=== PATIENT | female | born 1970 | race Caucasian/White ===

== ENCOUNTER 2021-11-27 17:32 | Emergency (ER) | payer MEDICAID, SELFPAY ==
[2021-11-27 17:33] VITALS: BP 132/93; PULSE 95; RESP 16; TEMP 36.7; O2SAT 92; BMI 36.2
--- NOTE | 2021-11-27 18:07 | CT_ITS ---
STUDY: CT BRAIN WITHOUT CONTRAST REASON FOR EXAM: Female, 51 years old. HEADACHE fall, head injury TECHNIQUE: Transaxial CT imaging of the brain was performed without administration of intravenous contrast material. Individualized dose optimization techniques were used for this CT. COMPARISON: None FINDINGS: Normal calvarium. Normal soft tissues. Normal size ventricles and extra-axial spaces for the patient''s age. Low density regions in the brain may signify early microvascular ischemic changes, a demyelinating process, vasculitis, or sequela related to migraines. Normal basal ganglia and thalami. Normal brainstem. Normal cerebellum. There is no intracranial hemorrhage. There are no findings of an acute ischemic infarction. Normal visualized paranasal sinuses. ASPECTS 10 CT/Brain/Head without Contrast IMPRESSION: Low density regions in the brain may signify early microvascular ischemic changes, a demyelinating process, vasculitis, or sequela related to migraines. Electronically Signed: Hossein Joyce MD at 19:00 EST ,
--- NOTE | 2021-11-27 18:07 | CT_ITS ---
STUDY: CT Spine Cervical W/O Contrast Injection 11/27/2021 6:59 PM REASON FOR EXAM: Female, 51 years old. NECK PAIN TECHNIQUE: High resolution transaxial imaging was performed without intravenous administration of contrast material. Sagittal and coronal images were reconstructed. Individualized dose optimization techniques were used for this CT. COMPARISON: None FINDINGS: Normal craniovertebral junction. Normal anterior atlantoaxial articulation. Normal odontoid process. There are scattered blebs and bullae. This can be seen in pulmonary emphysema. There is straightening of the normal cervical lordosis. Normal vertebral bodies and posterior osseous elements. C2-3: Normal endplates. Normal disc height and morphology. Normal central canal and intervertebral neuroforamina. C3-4: Normal endplates. Normal disc height and morphology. Normal central canal and intervertebral neuroforamina. C4-5: Loss of intervertebral disc height. There is endplate spondylosis of the vertebral body. Normal central canal and intervertebral neuroforamina. C5-6: Loss of intervertebral disc height. There is endplate spondylosis of the vertebral body. Normal central canal and intervertebral neuroforamina. C6-7: Normal endplates. Normal disc height and morphology. Normal central canal and intervertebral neuroforamina. C7-T1: Normal endplates. Normal disc height and morphology. Normal central canal and intervertebral neuroforamina. Normal visualized soft tissue structures. IMPRESSION: (NOT LISTED IN ORDER OF SIGNIFICANCE) Multilevel degenerative changes, as described above. There is altered curvature of the normal cervical lordosis. This can suggest neck strain. Electronically Signed: Hossein Joyce MD at 19:01 EST , CT/Spine Cervical without Contras
--- NOTE | 2021-11-27 18:12 | EDS_ITS ---
HPI <KARMEN Pruett - Last Filed: 11/27/21 19:50> History of Present Illness Chief Complaint: Syncope Narrative Narrative: 51-year-old with history of hypertension, COPD, diabetes, psychiatric issues presents the emergency department with a head injury secondary to a syncopal episode. 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 Patient states that she denies any warning that she was going to pass out, patient not get dizzy, not feel nauseated, sweaty. Patient does have an abrasion to the pos terior head, patient is acting appropriate, patient is not on any blood thinners PFS <KARMEN Pruett - Last Filed: 11/27/21 19:50> [facility] Medical History (Updated 11/27/21 @ 19:49 by KARMEN Pruett) COPD (chronic obstructive pulmonary disease) Degenerative disc disease Glaucoma High blood pressure High cholesterol Allergy/AdvReac Type Severity Reaction Status Date / Time codeine AdvReac Other Verified 11/27/21 18:00 Surgical History (Updated 11/27/21 @ 18:00 by Javi Roy) H/O exploratory laparotomy H/O knee surgery Social History Smoking Status: Current every day smoker tobacco type: cigarettes ROS <KARMEN Pruett - Last Filed: 11/27/21 19:50> ROS ED ROS Narrative Constitutional: Negative for fever, chills, weight loss or gain, weakness Eyes: Negative for vision loss, vision change, double vision ENT: Negative for any hearing changes, ringing in the ears, dizziness, discharge, pain Nose: Negative for any congestion, runny nose, sinus pain, allergies Throat: Negative for any sore throat hoarseness, voice changes, Cardiovascular: Negative for any chest pain, tightness, palpitations, racing heartbeat Respiratory: Negative for any coughs, sputum production, coughing, hemoptysis, shortness of breath, shortness of breath on exertion, Gastrointestinal: Negative for any abdominal pain, nausea, vomiting, diarrhea, constipation, blood in stool, blood in vomit : Negative for any urinary frequency, incontinence, dysuria, retention, blood in urine Muscle skeletal: Negative for any muscle joint pain, stiffness, myalgias, arthralgias, neck pain, back pain Neurological: Negative for any head injury, dizziness, syncope, numbness or tingling. Positive for headache Skin: Negative for any rashes, lumps, itching, lacerations. Positive for abrasion to the occiput Psychiatric: Negative for any depression, anxiety, stress, suicidal ideation, homicidal ideation Hematologic: Negative for any easy bruising, excessive bruising, easy bleeding Allergies: Negative for any eczema, hives, rash EXAM <KARMEN Pruett - Last Filed: 11/27/21 19:50> Physical Exam Const Vital Signs: 11/27/21 17:33 Temperature 98.1 F Temperature Source Temporal Pulse Rate 95 Respiratory Rate 16 Blood Pressure 132/93 H Blood Pressure Mean 106 Pulse Ox 92 Oxygen Delivery Method Room Air HEENT HEENT Narrative: Patient's occiput does have depression around the area of the abrasion, hematoma. trauma and tenderness Eyes Eyes Narrative: Pupils are equal round react to light, negative for any hematoma, septal hematoma. Neck no lymphadenopathy and supple Chest Wall inspection of chest normal and palpation of chest normal Resp normal respiratory effort and clear to auscultation bilaterally Cardio regular rate and regular rhythm GI normal to inspection, nondistended, normoactive bowel sounds Back/Spine no CVA tenderness Back/Spine Narrative: Patient has no pain to her lower back, negative any step- off deformity, pain to palpation. Extremity normal to inspection Neuro oriented x3 and CN's II-XII intact bilaterally Sensorium / Orientation: alert Psych mental status grossly normal <Dr. Kevin Sheldon DO - Last Filed: 11/27/21 23:34> Physical Exam Const Vital Signs: 11/27/21 17:33 Temperature 98.1 F Temperature Source Temporal Pulse Rate 95 Respiratory Rate 16 Blood Pressure 132/93 H Blood Pressure Mean 106 Pulse Ox 92 Oxygen Delivery Method Room Air MDM <KARMEN Pruett - Last Filed: 11/27/21 19:50> [facility] Narrative Medical decision making narrative: Patient appears well, patient appears nontoxic, vital signs are stable. Patient presents to the emergency department after a syncopal episode after drinking alcohol. Patient had a hematoma to the back of her head, and is here for evaluation. Patient did receive a CT scan of the head, cervical spine, this was unremarkable for any acute process. Patient's physical examination, patient is intoxicated however acting appropriate. Patient's blood alcohol level was 215. The remainder the patient's blood work was unremarkable. The patient tetanus is up-to-date in the last 5 years. Patient's reevaluation was unremarkable, patient's physical examination of the occiput shows that the patient has a hematoma, there is no laceration to staple. Patient was urged to ice, elevate. At this time, patient stable for discharge, patient does have her to watch her tonight. Patient instructed return for any worsening nausea, vomiting, head pain. Patient stable for discharge Lab Data Labs: Laboratory Results - last 24 hr 11/27/21 11/27/21 11/27/21 18:19 18:19 18:19 WBC 11.4 H RBC 4.76 Hgb 14.8 Hct 45.1 MCV 94.7 MCH 31.1 MCHC 32.8 RDW Std Deviation 44.0 H RDW Coeff of Gm 12.7 Plt Count 313 MPV 10.3 Immature Gran % (Auto) 0.400 Neut % (Auto) 74.8 H Lymph % (Auto) 15.[address] [place] % (Auto) 8.6 Eos % (Auto) 0.3 Baso % (Auto) 0.3 Absolute Neuts (auto) 8.5 H Absolute Lymphs (auto) 1.77 Nucleated RBC % 0 Sodium 131 L Potassium 3.6 Chloride 98 Carbon Dioxide 27.0 Anion Gap 6 BUN 6 L Creatinine 0.69 Estim Creat Clear Calc 75.43 Est GFR (MDRD) Af Amer 114 Est GFR (MDRD) Non-Af 94 BUN/Creatinine Ratio 8.6 L Glucose 96 Calcium 8.8 Ethyl Alcohol 215.0 Radiography Diagnostic Testing: Clinical Impression(s) from Imaging Studies Brain CT 11/27/21 18:07 IMPRESSION: Low density regions in the brain may signify early microvascular ischemic changes, a demyelinating process, vasculitis, or sequela related to migraines. Electronically Signed: Hosesin Joyce MD at 19:00 EST , Cervical Spine CT 11/27/21 18:07 EKG Normal sinus rhythm: Attestation: I personally reviewed and interpreted this EKG as follows: Comments: Normal sinus rhythm, rate of 85 bpm, SC interval 170 ms, QRS duration 80 ms, no acute ST elevation or infarct. <Dr. Kevin Sheldon DO - Last Filed: 11/27/21 23:34> [facility] MDM Narrative Medical decision making narrative: Attending note: Seen and evaluated with transfer worker. I agree with plan and work-up. I performed on [id number]-to-[id number] evaluation. Syncopal episode while on [place] steps [place] post office. No anticoagulation medicines. Tetanus in the last 5 years. Hit the back of her head. Headache symptoms. Admitted to couple drinks of alcohol today. States was lightheaded earlier today. No vomiting or diarrhea. Exam noted hematoma posterior occiput with abrasion there is no lacerations bleeding controlled with pressure. No hemotympanums. No neck pain. Full range of motion of all extremities. Patient is clinically sober, with her fall down steps trauma scans head and neck obtained shows no acute process. EKG was normal basic labs were normal alcohol level was obtained noted 215. Patient able to ambulate. She is discharged with a sober ride. Lab Data Attestation: I reviewed the patient's lab results. Labs: Laboratory Results - last 24 hr 11/27/21 11/27/21 11/27/21 18:19 18:19 18:19 WBC 11.4 H RBC 4.76 Hgb 14.8 Hct 45.1 MCV 94.7 MCH 31.1 MCHC 32.8 RDW Std Deviation 44.0 H RDW Coeff of Gm 12.7 Plt Count 313 MPV 10.3 Immature Gran % (Auto) 0.400 Neut % (Auto) 74.8 H Lymph % (Auto) 15.[address] % (Auto) 8.6 Eos % (Auto) 0.3 Baso % (Auto) 0.3 Absolute Neuts (auto) 8.5 H Absolute Lymphs (auto) 1.77 Nucleated RBC % 0 Sodium 131 L Potassium 3.6 Chloride 98 Carbon Dioxide 27.0 Anion Gap 6 BUN 6 L Creatinine 0.69 Estim Creat Clear Calc 75.43 Est GFR (MDRD) Af Amer 114 Est GFR (MDRD) Non-Af 94 BUN/Creatinine Ratio 8.6 L Glucose 96 Calcium 8.8 Ethyl Alcohol 215.0 Radiography Diagnostic Testing: Clinical Impression(s) from Imaging Studies Brain CT 11/27/21 18:07 IMPRESSION: Low density regions in the brain may signify early microvascular ischemic changes, a demyelinating process, vasculitis, or sequela related to migraines. Electronically Signed: Hossein Joyce MD at 19:00 EST Reading Location ID and State: [facility] / [place] , Service support , Cervical Spine CT 11/27/21 18:07 Discharge Plan Triage Chief Complaint: Syncope ED Provider: Bertrand Ventura Dx/Rx/DC Orders Clinical Impression: Syncope, Elevated ETOH level Instructions: Causes of Syncope, ED Head Injury (Adult) Primary Care Provider: Fabienne Mccoy Referrals: Fabienne Mccoy MD [Primary Care Provider] - Activity Restrictions/Additional Instructions: Please follow-up as needed, please ice the back of your head. Please take Tylenol for any pain or discomfort. Please return here for any worsening symptoms. Disposition Disposition: Home, Self Care Discharge Date/Time: 11/27/21 20:04
--- NOTE | 2021-11-27 18:16 | EKG12_ITS ---
Test Reason : SYNCOPE Blood Pressure : / mmHG Vent. Rate : 085 BPM Atrial Rate : 085 BPM P-R Int : 170 ms QRS Dur : 080 ms QT Int : 366 ms P-R-T Axes : 073 064 071 degrees QTc Int : 435 ms Normal sinus rhythm Normal ECG Confirmed by CESIA RIVAS, JAQUAN ([id number]), newspaper editor managing AVANI AMARAL ([id number]) on 11/30/2021 10:35:25 AM Referred By: TL Confirmed By:JAQUAN CALLAWAY MD
[2021-11-27 18:40] LABS: Absolute Lymphocyte Count 1.77 X10^3/uL (0.83-4.51); Absolute Neutrophil Count 8.5 X10^3/uL (2.0-7.7); Basophil# 0.03 X10^3/uL; Basophil% 0.3 % (0-1); Eosinophil# 0.03 X10^3/uL; Eosinophils% 0.3 % (0-5); Hematocrit 45.1 % (37-47); Hemoglobin 14.8 g/dL (12.0-15.0); Lymphocyte # 1.77 X10^3/ul (0.83-4.51); Lymphocyte % 15.6 % (19-41); Mean Corp Hgb Conc 32.8 g/dL (32-36); Mean Corpuscular Hgb 31.1 pg (27.0-32.0); Mean Corpuscular Volume 94.7 fL (81-99); Mean Platelet Vol. 10.3 fl (6.2-12.0); Monocyte# 0.98 X10^3/uL; Monocyte% 8.6 % (0-10); NRBC Flagged by Analyzer 0 % (0-5); Neutrophil # 8.52 X10^3/uL (2.7-7.7); Neutrophil % 74.8 % (47-70); Platelet Count 313 K/mm3 (150-450); RBC Distribution Width CV 12.7 % (11.6-14.6); Red Blood Count 4.76 M/mm3 (4.2-5.4); White Blood Count 11.4 K/mm3 (4.4-11.0)
[2021-11-27 18:47] LABS: Anion Gap 6 (5-15); BUN 6 mg/dL (7-18); BUN/Creat Ratio 8.6 RATIO (10-20); Calcium,Total 8.8 mg/dL (8.5-10.1); Chloride 98 mmol/L (98-107); Creatinine, Serum 0.69 mg/dL (0.55-1.02); EST Glomerular Filtration Rate 94 mL/min (>60); Est Glom Filt Rate - Afr Amer 114 mL/min (>60); Estimated Creatinine Clearance 75.43 ml/min; Glucose 96 mg/dL (74-106); Potassium 3.6 mmol/L (3.5-5.1); Sodium Level 131 mmol/L (136-145)
== END 2021-11-27 20:04 | disposition home or self-care (01) ==
PROVIDERS: Emergency Provider Nurse Practitioner; PCP Internal Medicine; Visit Provider Nurse Practitioner
DX: R55 Syncope and collapse (principal); J44.9 Chronic obstructive pulmonary disease, unspecified; F10.929 Alcohol use, unspecified with intoxication, unspecified; E11.9 Type 2 diabetes mellitus without complications; Y90.7 Blood alcohol level of 200-239 mg/100 ml; S00.93XA Contusion of unspecified part of head, initial encounter; W10.9XXA Fall (on) (from) unspecified stairs and steps, initial encounter; Y93.89 Activity, other specified; Y99.8 Other external cause status; I10 Essential (primary) hypertension; F17.210 Nicotine dependence, cigarettes, uncomplicated; E78.00 Pure hypercholesterolemia, unspecified; Z79.899 Other long term (current) drug therapy
CPT/HCPCS: 70450; 72125; 80048; 82077; 85025; 93005; 99283; A4216

== ENCOUNTER 2023-09-15 12:57 | Observation (INO) | payer MEDICAID, SELFPAY ==
[2023-09-15 12:59] VITALS: BP 120/81; PULSE 107; RESP 16; TEMP 36.4; O2SAT 95; BMI 31.3
--- NOTE | 2023-09-15 13:06 | EKG12_ITS ---
Test Reason : DYSRHYTHMIA Blood Pressure : / mmHG Vent. Rate : 099 BPM Atrial Rate : 099 BPM P-R Int : 158 ms QRS Dur : 078 ms QT Int : 320 ms P-R-T Axes : 074 050 062 degrees QTc Int : 410 ms Sinus rhythm with Premature atrial complexes Otherwise normal ECG Confirmed by CESIA RIVAS, JAQUAN ([id number]), tape editor AVANI AMARAL ([id number]) on 09/16/2023 1:57:38 PM Referred By: JERRY Confirmed By:JAQUAN CALLAWAY MD
[2023-09-15 13:43] LABS: Absolute Lymphocyte Count 2.03 X10^3/uL (0.83-4.51); Absolute Neutrophil Count 5.8 X10^3/uL (2.0-7.7); Basophil# 0.03 X10^3/uL; Basophil% 0.3 % (0-1); Eosinophil# 0.04 X10^3/uL; Eosinophils% 0.5 % (0-5); Hematocrit 38.4 % (37-47); Hemoglobin 12.5 g/dL (12.0-15.0); Lymphocyte # 2.03 X10^3/ul (0.83-4.51); Lymphocyte % 23.2 % (19-41); Mean Corp Hgb Conc 32.6 g/dL (32-36); Mean Corpuscular Volume 92.1 fL (81-99); Mean Platelet Vol. 9.8 fl (6.2-12.0); Monocyte# 0.79 X10^3/uL; NRBC Flagged by Analyzer 0 % (0-5); Neutrophil # 5.83 X10^3/uL (2.7-7.7); Neutrophil % 66.5 % (47-70); Platelet Count 344 K/mm3 (150-450); RBC Distribution Width CV 13.2 % (11.6-14.6); RBC Distribution Width SD 44.9 fl (35.1-43.9); Red Blood Count 4.17 M/mm3 (4.2-5.4); White Blood Count 8.8 K/mm3 (4.4-11.0)
[2023-09-15 13:55] LABS: ALB/GLOB Ratio 0.8 RATIO (0.9-2.4); AST(SGOT) 22 U/L (15-37); Alanine Aminotransfer ALT/SGPT 32 U/L (13-56); Albumin, Serum 3.3 g/dL (3.2-5.0); Alkaline Phosphatase 108 U/L (45-117); Anion Gap 5 (5-15); BUN 8 mg/dL (7-18); BUN/Creat Ratio 14.2 RATIO (10-20); Calcium,Total 8.2 mg/dL (8.5-10.1); Chloride 98 mmol/L (98-107); Creatinine, Serum 0.56 mg/dL (0.55-1.02); EST Glomerular Filtration Rate 119 mL/min (>60); Est Glom Filt Rate - Afr Amer 144 mL/min (>60); Estimated Creatinine Clearance 90.83 ml/min; Glucose 119 mg/dL (74-106); Potassium 4.5 mmol/L (3.5-5.1); Protein, Total 7.3 g/dL (6.4-8.2); Sodium Level 133 mmol/L (136-145)
[2023-09-15 14:09] LABS: Amphetamine Urine VISTA NEGATIVE (<1000 ng/mL); Barbiturate Urine VISTA NEGATIVE (< 200 ng/mL); Benzodiazepine Urine VISTA NEGATIVE (< 200 ng/mL); Cocaine Urine VISTA NEGATIVE (< 300 ng/mL); Ecstacy Urine VISTA NEGATIVE (< 500 ng/mL); Methadone Urine VISTA NEGATIVE (< 300 ng/mL); PCP Urine VISTA NEGATIVE (< 25 ng/mL); THC Urine VISTA NEGATIVE (< 50 ng/mL); Vista UDS pH Range 6
--- NOTE | 2023-09-15 14:32 | EDS_ITS ---
HPI History of Present Illness Chief Complaint: Substance Abuse Informant: patient Narrative Narrative: Patient is a 53-year-old female with history of fibromyalgia and anxiety presenting for alcohol detox. Patient states she is been drinking heavily for the past few weeks. She was recently admitted at [facility] for a 2- week hospitalization for her anxiety. She notes since then she has been experiencing night terrors and sleepwalking. She has been drinking more to cope with this. Last drink was at 4 AM. She states last night she drank 10 16 ounce [place] Light's. She is normally she will drink 4 to 6 16 ounce beers. Patient denies any history of DVTs. She denies any drug use. She denies any tobacco use. She has never been through detox before. No other complaints or concerns at this time. [facility] Medical History COPD (chronic obstructive pulmonary disease) Degenerative disc disease Glaucoma High blood pressure High cholesterol Allergy/AdvReac Type Severity Reaction Status Date / Time nickel Allergy Mild Hives Verified 09/15/23 13:01 cephalexin [From Keflex] Allergy Unknown UNKNOWN Verified 09/15/23 13:01 metoprolol AdvReac Mild Other Verified 09/15/23 13:01 codeine AdvReac Other Verified 09/15/23 13:01 Surgical History H/O exploratory laparotomy H/O knee surgery Social History Smoking Status: Current every day smoker tobacco type: cigarettes ROS ROS ED Constitutional Constitutional ED: Denies chills, fever(s) or sweats Cardiovascular Cardiovascular: Denies chest pain Respiratory/Chest Respiratory/Chest: Denies cough Gastrointestinal Gastrointestinal: Denies abdominal pain, nausea or vomiting Integumentary Denies rash Neurologic Neurologic: Denies headache(s) Psychiatric Psychiatric: Reports anxiety; Denies suicidal ideation or suicidal thoughts Hematologic/Lymphatic Hematologic/Lymphatic: Denies easy bleeding EXAM Physical Exam Const Vital Signs: 09/15/23 12:59 Temperature 97.6 F L Temperature Source Temporal Pulse Rate 107 H Respiratory Rate 16 Blood Pressure 120/81 H Blood Pressure Mean 94 Pulse Ox 95 Oxygen Delivery Method Room Air Positive well nourished and well developed General Appearance ED: well developed and NAD HEENT Reports moist mucous membranes Eyes PERRL and EOMs intact bilaterally General Eye ED: Negative for scleral icterus Neck supple and no JVD Chest Wall inspection of chest normal Resp clear to auscultation bilaterally Cardio regular rhythm Rate: tachycardic GI soft to palpation and non-tender Extremity General Extremety ED: Negative for edema or tenderness General Extremity: Negative for edema Neuro oriented x3 Neuro Narrative: Slightly tremulous, no focal neurologic deficit appreciated. Speech is normal. Sensorium / Orientation: alert Psych mental status grossly normal Mood & Affect: anxious Skin General Skin Exam: Negative for jaundice Rashes: no rashes MDM MDM MDM Narrative Medical decision making narrative: Patient is evaluated for alcohol detox. Patient is mildly tachycardic and tremulous. Possibly could be starting to withdrawal clinically. The alcohol level is negative and last drink is at 4 AM. Is given phenobarbital in the ER. Is medically cleared. I will be admitted for inpatient detox from alcohol. Patient agreeable with this. Case discussed with my physician, Dr. Mohan. Lab Data Attestation: I reviewed the patient's lab results. Labs: Laboratory Results - last 24 hr 09/15/23 09/15/23 13:32 13:52 WBC 8.8 RBC 4.17 L Hgb 12.5 Hct 38.4 MCV 92.1 MCH 30.0 MCHC 32.6 RDW Std Deviation 44.9 H RDW Coeff of Gm 13.2 Plt Count 344 MPV 9.8 Immature Gran % (Auto) 0.500 Neut % (Auto) 66.5 Lymph % (Auto) 23.2 [place] % (Auto) 9.0 Eos % (Auto) 0.5 Baso % (Auto) 0.3 Absolute Neuts (auto) 5.8 Absolute Lymphs (auto) 2.03 Nucleated RBC % 0 Sodium 133 L Potassium 4.5 Chloride 98 Carbon Dioxide 30.0 Anion Gap 5 BUN 8 Creatinine 0.56 Estim Creat Clear Calc 90.83 Est GFR (MDRD) Af Amer 144 Est GFR (MDRD) Non-Af 119 BUN/Creatinine Ratio 14.2 Glucose 119 H Calcium 8.2 L Total Bilirubin 0.10 L AST 22 ALT 32 Alkaline Phosphatase 108 Total Protein 7.3 Albumin 3.3 Globulin 4.0 Albumin/Globulin Ratio 0.8 L Urine Opiates Screen NEGATIVE Urine Methadone Screen NEGATIVE Ur Barbiturates Screen NEGATIVE Ur Phencyclidine Scrn NEGATIVE Ur Amphetamines Screen NEGATIVE MDMA (Ecstasy) Screen NEGATIVE U Benzodiazepines Scrn NEGATIVE Urine Cocaine Screen NEGATIVE U Cannabinoids Screen NEGATIVE Ur Drug Screen Comment Ethyl Alcohol 4.0 Management Discussion w/another healthcare provider: Hospitalist Discharge Plan Triage Chief Complaint: Substance Abuse ED Provider: Denise Alvarez Dx/Rx/DC Orders Clinical Impression: Alcohol dependence Primary Care Provider: Salud Galvan Referrals: Salud Galvan DO [Primary Care Provider] - Disposition Disposition: Acute Care Hospital [facility]
[2023-09-15] MEDS: Phenobarbital 32.4 MG Tablet 94.2000000000000028 MG PO (14:34)
[2023-09-15 15:24] VITALS: BP 106/73; PULSE 94; RESP 16; O2SAT 95
[2023-09-15 16:32] VITALS: BMI 31.1
[2023-09-15 16:33] VITALS: BP 116/70; PULSE 89; RESP 16; TEMP 36.6; O2SAT 93
--- NOTE | 2023-09-15 16:48 | HP.PCM.HOS_ITS ---
HPI - General General Date of Admission: 09/15/23 Date of Service: 09/15/23 Chief Complaint: Requesting services for alcohol detox HPI Narrative MYKE MOSELEY, is a 53 F who presents to the emergency room at [facility] requesting services for alcohol detox, patient states she drinks approximately 6-16 ounce [place] Light's per day, last night the patient states she drank 10-16 ounce [place] Light's. Patient states she has never been through alcohol detox before, she was hospitalized recently for bipolar disorder and anxiety. Patient states her last drink was 4 AM this morning. Patient's medical conditions include COPD, glaucoma, hypertension, hyperlipidemia, and degenerative disc disease. Patient's labs were unremarkable, patient's tox screen was negative, ethyl alcohol level was 4. Patient complains of some anxiety at this time, she denies ever having episodes of DT's, she has quit drinking before and had no withdrawal in the past. Patient will be admitted to [place] [address], orders were entered using the addiction order set and the alcohol detox order set. Patient was given 1 dose of oral phenobarbital in the emergency room due to anxiety [facility] Medical History COPD (chronic obstructive pulmonary disease) Degenerative disc disease Glaucoma High blood pressure High cholesterol Home Medications albuterol sulfate 2.5 mg/3 mL (0.083 %) solution for nebulization 2.5 mg inhalation Q6H PRN shortness of breath or wheezing 09/15/23 [History Last Taken Unknown] albuterol sulfate 90 mcg/actuation aerosol inhaler (Ventolin HFA) 2 puff inhalation Q4H PRN shortness of breath or wheezing 09/15/23 [History Last Taken Unknown] atorvastatin 10 mg tablet 10 mg PO DAILY ccholestrol 09/15/23 [History Last Taken Unknown] cyclobenzaprine 10 mg tablet 10 mg PO BID 09/15/23 [History Last Taken Unknown] dorzolamide 2 % eye drops 1 drp ophthalmic (eye) BID glaucoma 09/15/23 [History Last Taken Unknown] duloxetine 20 mg capsule,delayed release 20 mg PO QHS mood 09/15/23 [History Last Taken Unknown] furosemide 20 mg tablet 20 - 40 mg PO DAILY PRN edema 09/15/23 [History Last Taken Unknown] hydrocodone-homatropine 5 mg-1.5 mg/5 mL oral syrup 5 ml PO QHS cough 09/15/23 [History Last Taken Unknown] hydroxyzine pamoate 50 mg capsule 50 mg PO Q8H anxiey and allergies 09/15/23 [History Last Taken Unknown] latanoprostene bunod 0.024 % eye drops (Vyzulta) 1 drp EACH EYE QHS glaucoma 09/15/23 [History Last Taken Unknown] lidocaine 4 % topical patch (Lidocaine Pain Relief) 1 patch topical DAILY 09/15/23 [History Last Taken Unknown] lisinopril 40 mg tablet 40 mg PO DAILY blood pressure 09/15/23 [History Last Taken Unknown] montelukast 10 mg tablet 10 mg PO DAILY sob 09/15/23 [History Last Taken Unknown] omeprazole 40 mg capsule,delayed release 40 mg PO DAILY gerd 09/15/23 [History Last Taken Unknown] paliperidone 6 mg tablet,extended release 24 hr 6 mg PO QHS mood 09/15/23 [History Last Taken Unknown] prazosin 1 mg capsule 1 mg PO QHS mood 09/15/23 [History Last Taken Unknown] propylene glycol 0.6 % eye drops (Systane Complete) 1 drp EACH EYE TID PRN dry eye(s) 09/15/23 [History Last Taken Unknown] tizanidine 4 mg tablet 4 mg PO DAILY sore muscles 09/15/23 [History Last Taken Unknown] Allergy/AdvReac Type Severity Reaction Status Date / Time brimonidine Allergy Intermediate infections Verified 09/15/23 16:48 cat dander Allergy Intermediate Hives Verified 09/15/23 16:50 nickel Allergy Mild Hives Verified 09/15/23 13:01 cephalexin [From Keflex] Allergy Unknown UNKNOWN Verified 09/15/23 13:01 timolol AdvReac Intermediate decreased Verified 09/15/23 16:48 pulse metoprolol AdvReac Mild Other Verified 09/15/23 13:01 codeine AdvReac Other Verified 09/15/23 13:01 Surgical History H/O exploratory laparotomy H/O knee surgery Social History Smoking Status: Current every day smoker tobacco type: cigarettes ROS Constitutional Constitutional: Denies anorexia, change in weight, chills, fatigue, fever(s), night sweats or weakness Eyes Eyes: Denies blurry vision, change in eye color, change in vision, discharge from eye(s) or eye pain Cardiovascular Cardiovascular: Denies chest pain, claudication, dyspnea on exertion, edema or palpitations Respiratory/Chest Respiratory/Chest: Denies cough, hemoptysis, shortness of breath at rest or shortness of breath with exertion Gastrointestinal Gastrointestinal: Denies abdominal pain, constipation, diarrhea, hematemesis, hematochezia, melena, nausea or vomiting Genitourinary Genitourinary: Denies dysuria, hematuria, urinary frequency, urinary hesitancy, urinary incontinence or urinary urgency Neurologic Neurologic: Denies abnormal gait, abnormal speech, dizziness, focal weakness, headache(s), loss of vision, numbness, other visual disturbances, paresthesias, syncope or tingling Psychiatric Psychiatric: Reports anxiety, depression and other Details: Bipolar disorder ; Denies cognitive impairment, irritability, mood swings or suicidal ideation Endocrine Endocrinology: Denies change in body appearance, cold intolerance, excessive sweating, heat intolerance, polydipsia or polyuria Hematologic/Lymphatic Hematologic/Lymphatic: Denies none, anemia, easy bleeding, easy bruising or lymphadenopathy Allergic/Immunologic Allergic/Immunologic: Denies rhinitis, urticaria, eczemia or asthma Vital Signs Vital Signs Vital Signs: 09/15/23 12:59 09/15/23 15:24 09/15/23 15:24 Temperature 97.6 F L Temperature Source Temporal Pulse Rate 107 H 94 94 Respiratory Rate 16 16 16 Blood Pressure 120/81 H 106/73 106/73 Blood Pressure Mean 94 84 84 Pulse Ox 95 95 95 Oxygen Delivery Method Room Air Room Air Weight Weight: 76.9 kg Body Mass Index (BMI) 31.1 Physical Exam Const alert, oriented x3, no apparent distress and healthy appearing Constitutional Narrative: Patient appears mildly anxious General Appearance: cooperative, well kempt and well developed Orientation / Consciousness: awake, oriented to person, oriented to place and oriented to time HEENT normocephalic, head/scalp atraumatic, hearing grossly normal bilaterally and moist oral mucous membranes Eyes PERRL, EOMs intact bilaterally and conjunctivae normal Neck supple, no JVD, thyroid normal and no carotid bruits General: trachea midline Resp normal respiratory effort, no retractions, no use of accessory muscles and clear to auscultation bilaterally Auscultation: Negative for rales, rhonchi or wheezes Cardio regular rate, regular rhythm, S1 normal heart sound, S2 normal heart sound, no murmurs, no rub and no gallops GI normal to inspection, nondistended, normoactive bowel sounds, soft to palpation, non-tender and non-distended Extremity no clubbing, cyanosis or edema Skin no rashes or lesions noted General Skin Exam: no breakdown Neuro oriented x3, CN's II-XII intact bilaterally, moves all extremities, no focal motor deficits and no sensory deficits noted Sensorium / Orientation: awake, alert, oriented to person, oriented to place and oriented to time Speech: speech normal Psych Psych Narrative: Patient appears mildly anxious Results Lab / Micro Data 09/15/23 13:32 09/15/23 13:32 Labs: Laboratory Results - last 24 hr 09/15/23 13:32: WBC 8.8, RBC 4.17 L, Hgb 12.5, Hct 38.4, MCV 92.1, MCH 30.0, MCHC 32.6, RDW Std Deviation 44.9 H, RDW Coeff of Gm 13.2, Plt Count 344, MPV 9.8, Immature Gran % (Auto) 0.500, Neut % (Auto) 66.5, Lymph % (Auto) 23.2, [place] % (Auto) 9.0, Eos % (Auto) 0.5, Baso % (Auto) 0.3, Absolute Neuts (auto) 5.8, Absolute Lymphs (auto) 2.03, Nucleated RBC % 0, Sodium 133 L, Potassium 4.5, Chloride 98, Carbon Dioxide 30.0, Anion Gap 5, BUN 8, Creatinine 0.56, Estim Creat Clear Calc 90.83, Est GFR (MDRD) Af Amer 144, Est GFR (MDRD) Non-Af 119, BUN/Creatinine Ratio 14.2, Glucose 119 H, Calcium 8.2 L, Total Bilirubin 0.10 L, AST 22, ALT 32, Alkaline Phosphatase 108, Total Protein 7.3, Albumin 3.3, Globulin 4.0, Albumin/Globulin Ratio 0.8 L, Ethyl Alcohol 4.0 09/15/23 13:52: Urine Opiates Screen NEGATIVE, Urine Methadone Screen NEGATIVE, Ur Barbiturates Screen NEGATIVE, Ur Phencyclidine Scrn NEGATIVE, Ur Amphetamines Screen NEGATIVE, MDMA (Ecstasy) Screen NEGATIVE, U Benzodiazepines Scrn NEGATIVE, Urine Cocaine Screen NEGATIVE, U Cannabinoids Screen NEGATIVE, Ur Drug Screen Comment Assessment & Plan Assessment/Plan (1) Alcohol dependence: PLAN: Plan 1. Acute alcohol withdrawal-patient will be admitted to [place] [address], orders were entered using the addiction order set and the alcohol detox order set, she will be seen in consultation by addiction social media assistant #2 bipolar disorder-patient will remain on her home medications #3 COPD-patient will be placed on albuterol aerosols as needed #4 glaucoma-patient's eyedrops will be continued Total clinical time spent by myself addressing the patient's medical issues, reviewing all of her data, and collaborating with patient's care team: 40 minute s Charges/Coding Visit Charges Inpatient E&M: [id number] Init Hosp L1
[2023-09-15] MEDS: Phenobarbital 32.4 MG Tablet 97.2000000000000028 MG PO ×2 (17:32→21:58)
[2023-09-15] MEDS: Gabapentin 300 MG Capsule PO (17:37)
[2023-09-15 21:50] VITALS: BP 115/81; PULSE 98; RESP 18; TEMP 36.6; O2SAT 96
[2023-09-15] MEDS: Dorzolamide 2% 10ml Bottle 1 DRP OPHTHALMIC (21:57)
[2023-09-15] MEDS: DULoxetine Hcl 20 MG Capsule PO (21:59)
[2023-09-15] MEDS: Doxazosin 1 MG Tablet PO (21:59)
[2023-09-15] MEDS: cycloBENZAPRine HCl 10 MG Tablet PO (22:00)
[2023-09-15] MEDS: PALIPERIDONE 3 MG TAB.ER.24 6 MG PO (22:00)
[2023-09-15] MEDS: 0.9% Saline Lock 10 ML Syringe IV (22:04)
[2023-09-15] MEDS: LATANOPROSTENE BUNOD 0.024% 1 DRP OPHTHALMIC (22:07)
[2023-09-16 01:25] VITALS: BP 107/63; PULSE 82; RESP 18; TEMP 36.4; O2SAT 95
[2023-09-16] MEDS: Phenobarbital 32.4 MG Tablet 97.2000000000000028 MG PO ×3 (01:31→09:41)
[2023-09-16 04:59] VITALS: BP 101/55; PULSE 102; RESP 18; TEMP 36.4; O2SAT 94
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
[2023-09-16] MEDS: Folic Acid 1 MG Tablet PO (08:03)
[2023-09-16] MEDS: Atorvastatin Calcium 10 MG Tablet PO (08:03)
[2023-09-16] MEDS: Montelukast 10 MG Tablet PO (08:03)
[2023-09-16] MEDS: Lisinopril 40 MG Tablet PO (08:03)
[2023-09-16] MEDS: Thiamine Hydrochloride 100 MG Tablet PO (08:03)
[2023-09-16] MEDS: Pantoprazole Sodium 40 MG Tablet PO (08:03)
[2023-09-16] MEDS: Dorzolamide 2% 10ml Bottle 1 DRP OPHTHALMIC (08:04)
[2023-09-16] MEDS: cycloBENZAPRine HCl 10 MG Tablet PO (08:06)
[2023-09-16] MEDS: tiZANidine HCl 2 MG Tablet 4 MG PO (09:44)
[2023-09-16 09:46] VITALS: BP 112/83; PULSE 66; RESP 16; TEMP 36.5; O2SAT 95
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
[2023-09-16] MEDS: Gabapentin 300 MG Capsule PO (12:30)
[2023-09-16 12:33] VITALS: BP 108/79; PULSE 96; RESP 16; TEMP 36.4; O2SAT 95
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
--- NOTE | 2023-09-16 14:10 | CHAPLAIN ---
Type of Pastoral Visit _x__ Initial Visit ___ Follow-up Visit ___ On-call Visit ___ General Patient Visit ___ Spiritual Assessment ___ Family Conference ___ Bereavement ___ Rapid Response ___ Code Blue ___ Other (describe below) Pastoral Care Referral From _x__ Patient ___ Family ___ Nurse ___ Physician ___ Market Editor ___ Controls Operator Molded Goods ___ Other (describe below) Sacrament/Intervention _x__ Active listening ___ Anointing ___ Druze ___ Bereavement ___ Communion _x__ Sylvia exploration ___ _x__ Life review _x__ Prayer ___ Reconciliation ___ Sacrament of Sick _x__ Supportive presence ___ Wedding ___ Other (describe below) Pastoral Comments patient is very welcoming and asks this studio sales associate about his sylvia and his type of ministry as she explains her sylvia and appreciation for the Baptism buddhism; pt is affirmed in her sylvia and that she goes to God when in need; pt has experience in hospitals and rehab and speaks freely of her struggles in life and marriage; pt is open about her life and her desire to be of help to others; pt welcomes the Lord's Prayer and other spiritual notes of care
[2023-09-16 16:08] VITALS: BP 114/72; PULSE 97; RESP 16; TEMP 36.6; O2SAT 95
--- NOTE | 2023-09-16 17:21 | ADDICTION ---
Pt was met w/for [facility] assessment and to complete ASAM, AUDIT, DUDIT, JORDI, and D/C Plan. Pt reports that she has struggled with daily alcohol use and bipolar disorder that interfere with her ability to fx. Pt's Cosme was included in Pt's discharge plan. He is on his way to pick her up from [facility] with the plan to follow up with [facility] for [facility] assessment on Tuesday09/20/23. Pt was provided resources and information on community recovery supports, peer support hotline, and emergency services should her condition or sxs worsen. Pt was advised to abstain from all alcohol and mind altering substances d/t risk of relapse and continued problem potential. Pt was provided information on residential and inpatient options for tx. Pt to f/u w/[facility] for assessment and will consider options for residential tx prior to her appt. for assessment Tuesday.
== END 2023-09-16 18:02 | disposition home or self-care (01) | DRG 775 ==
LOC: ED 14:36 → MS3 09-16 07:05
PROVIDERS: Admitting Provider Internal Medicine; Emergency Provider Emergency Medicine; PCP Internal Medicine
DX: F10.239 Alcohol dependence with withdrawal, unspecified (principal); J44.9 Chronic obstructive pulmonary disease, unspecified; F31.9 Bipolar disorder, unspecified; E78.00 Pure hypercholesterolemia, unspecified; I10 Essential (primary) hypertension; F17.210 Nicotine dependence, cigarettes, uncomplicated; F41.9 Anxiety disorder, unspecified; H40.9 Unspecified glaucoma; Z79.899 Other long term (current) drug therapy; Y90.0 Blood alcohol level of less than 20 mg/100 ml
CPT/HCPCS: 80053; 80307; 80320; 85025; 93005; 99221; 99284; 99406; A4216; G0378; G0480

== ENCOUNTER 2023-10-10 08:00 | Outpatient (RCR) | payer MEDICAID, SELFPAY ==
--- NOTE | 2023-10-10 10:00 | BH.MTP ---
Master Treatment Plan Patient Information Program Physician:: Anna Hurtado Primary Therapist:: Bret Almaraz Psychiatric Diagnoses Psychiatric Diagnoses:: 1. Bipolar 1 disorder, most recent episode manic severe without psychotic features 2. PTSD 3. Anxiety disorder, NOS 4. Strong cluster B traits 5. Alcohol use disorder Diagnosis Code(s):: F31.13 Estimated LOS Estimated LOS (in weeks):: 8 Problem/Goal #1 Problem/Goal #1 Stated Goal:: Client will increase mood stability and reduce depression due to Bipolar I AEB by self-report, staff report, and reduction on the DSM-5 dipika, depression, and SI scales. Description of Barriers: Client will increase emotional regulation and reduce intensity and duration of anxiety symptoms AEB self-report and reduction of DSM-5 anxiety scale Functional Impact: Due to recent mood instability she has lost her job, been charged with theft, had a restraining placed on her by her landlord, had 3 psych admissions since 08/29/23, and of 18 years is seeking a divorce. Goal Relevant Strengths/Supports: Motivated and engaged at times, reports desire to stabilize mood. Objectives Objective #1: Stated Objective: Client will increase self-awareness of her bipolar disorder by identifying 2-3 warning signs and triggers to both manic and depressive episodes. Will complete daily Bipolar mood tracker to gain better understanding of her fluctuating moods. Interventions: Through individual and group counseling will teach client various coping skills to manage symptoms and give client tangible resources to use to regulate emotions. Therapist will use cognitive restructuring techniques and help client gain awareness of negative thoughts that reinforce depressive cycles. Will provide worksheet and mood tracker for her to complete. Discharge Criteria: Identify 3 warning signs and triggers to manic/depressive episodes. Consistenly maintain Bipolar mood tracker. Target Date: 12/09/23 Review Date: 11/02/23 Problem/Goal #2 Problem/Goal #2 Stated Goal:: Client will increase emotional regulation and reduce intensity and duration of anxiety symptoms AEB self-report and reduction of DSM-5 anxiety scale Description of Barriers: Client will increase emotional regulation and reduce intensity and duration of anxiety symptoms AEB self-report and reduction of DSM-5 anxiety scale Functional Impact: Due to recent mood instability she has lost her job, been charged with theft, had a restraining placed on her by her landlord, had 3 psych admissions since 08/29/23, and of 18 years is seeking a divorce. Goal Relevant Strengths/Supports: Motivated and engaged at times. Objectives Objective #1: Stated Objective: Client will learn and implement 2-3 calming skills to reduce overall anxiety and manage anxiety. Interventions: Through individual and group counseling will teach the client calming/relaxation skills (e.g., muscle relaxation, mindful breathing) and how to discriminate better between relaxation and tension; teach the client how to apply these skills to his/her daily life. Discharge Criteria: Able to identify 2-3 calming skills and consistently utilize them. Target Date: 11/02/23 Review Date: 12/09/23
--- NOTE | 2023-10-10 10:10 | BH.SGPN.GN ---
Behaviors/Verbalizations/Mental Status: [] Eye contact is fair. Motor activity is appropriate. Appearance is casual. Speech is Appropriate. Mood is euthymic. Affect is constricted. Thoughts are linear and logical. No evidence of psychosis. Client Response/Progress/Benefit: [] Pt was an active participant in group discussions. Attentive during psychoeducation AEB by note taking and providing some input. Pt worked along with peers in small groups to define guilt, inappropriate guilt, and appropriate guilt. Interactive discussion on examples of both inappropriate and appropriate guilt. Pt identified a personal example of inappropriate guilt setting a boundary with her and how this impacted their mental health. Benefited from increased awareness of guilt and the differences between appropriate and inappropriate guilt. Will continue in IOP to improve distress tolerance, improve daily functioning, and prevent decompensation.
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
--- NOTE | 2023-10-10 11:10 | BH.SGPN.GN ---
Behaviors/Verbalizations/Mental Status: []Pt alert and oriented, neatly dressed and groomed. Eye contact good. Motor activity appropriate. Speech within normal limits. Affect congruent, mood anxious. Thoughts linear, logical, no signs of hallucinations or delusions. Client Response/Progress/Benefit: [] Pt engaged participant AEB listening attentively to others and providing input throughout group. Pt worked with their small group to identify strategies to manage inappropriate guilt. Pt wanted to focus on addressing appropriate guilt. Pt stated pt often feels appropriate guilt when pt drinks or spends money ?that I don?t have.? Pt wants to work on combatting inappropriate guilt by verbalizing her boundaries and talking to her ?soon to be ex-.? Pt seemed to benefit from learning about strategies to manage appropriate and inappropriate guilt. Pt?s first day of IOP tx. Pt will continue IOP tx to prevent decompensation, improve daily functioning, and gain healthy coping skills. Narrative Note: []
--- NOTE | 2023-10-10 11:39 | BH.COMM ---
Communication Note Communication with Client Communication Note: Met with patient to complete initial paperwork. Since pre-admission assessment pt was additionally hospitalized at [facility] [address] for mood instability and intrusive thoughts of harming her ex-employer following pt termination of employment in July. Denies actual plan or intent. Denies any HI since inpatient hospitalization on 09/23/23. Pt was admitted to [facility] twice in July for mental health and substance abuse reasons. Pt has several significant psychosocial stressors including recent job loss, pending divorce and moving to a new apartment as a result, legal issues, and alcohol dependence. Completed C-SSRS. Pt denies any hx of suicidal ideation, plan, intent, or hx of self-harming. Therefore, pt is a low to moderate-risk. Has been continuing with regular counseling with therapist (Jeannette). Medication is managed through Dr. Lima at [facility] in [place], [place]. Next appointment is ?in a few weeks?. Protective factors (pets, friends, reasons for living, whitney). Future-oriented (goals for her future). Verbalizes she can keep self safe. Denies hx of self-injurious behaviors. Does not present as imminent danger to self or others. No family hx of completed suicide. Consulted with program psychiatrist who is in agreement with plan to admit pt to [facility] level of care under diagnosis of Bipolar Disorder, Unspecified F31.9
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
--- NOTE | 2023-10-12 11:15 | BH.SGPN.GN ---
Behaviors/Verbalizations/Mental Status: []Pt alert and oriented, casually dressed and groomed. Eye contact fair to good. Motor activity restless. Speech within normal limits. Affect congruent, mood agitated. Thoughts linear, logical, no signs of hallucinations or delusions. Client Response/Progress/Benefit: [] Pt responded well to session AEB taking notes and contributing to discussion throughout. Pt engaged as group continued discussion on acceptance and the mental health benefits of practicing acceptance. Pt and peers identified what makes acceptance challenging and pt completed a self-reflection exercise on what is hard to accept in pt's life. Pt identified struggling to accept being fired from my job?. Group identified strategies to increase acceptance and pt shared wanting to focus on setting realistic goals for ?this version of me.? Pt appeared to benefit from gaining insight and learning strategies to increase acceptance. Pt will continue IOP tx to prevent decompensation, improve daily functioning, and increase emotional regulation skills. ? Narrative Note: []
--- NOTE | 2023-10-12 11:35 | BH.NA ---
Physical Data Vital Signs Pulse Rate: 97 Blood Pressure: 135/84 Height/Weight Height: 1.57 m Weight:: 80.739 kg Weight in Pounds: 178.0 lbs Nutritional History Appetite Nutritional Instructions: Describe your appetite:: Good Additional nutritional information:: Client states she has unintentionally gained some weight recently from an increased appetite. Functional Assessment Sleep Pattern Describe any problems with sleeping: Client states her sleep varies, some days she sleeps up to 14 hours. Sensory/Communication Assess Communication Problems Do you have difficulty understanding what people are saying?: No Medical Problems/History Cardiac Conditions Cardiovascular: Hypertension, Hyperlipidemia and Other (See comments) (heart murmur) Respiratory Conditions Respiratory: Other (See comments) (COPD) Gastrointestinal Conditions Gastrointestinal: Other (See comments) (GERD) Musculoskeletal Conditions Musculoskeletal: Arthritis and Other (See comments) (degenerative disc disease) Pain Assessment Do you have acute or chronic pain?: Yes (all over from OA) Additional History Additional comments:: glaucoma Surgical History Surgical History Have you had any surgeries? If so, list type and date:: Yes (carpel tunnel, knee, lipoma removals, exp lap-abdomen, cervical cyst) Substance Abuse Substance Abuse Please describe substance abuse in the last 30 days:: Client states she has a history of heavy drinking, and states recently she has been drinking 2-4 beers per day. Client states she has been a cigarette smoker since she was 11, and currently smokes about 5 cigarettes per day. Client states she has some past drug use, and currently uses marijuana occasionally. Client states she has 3 drinks per day with caffeine, usually coffee or Pepsi. Mental Status Summary Mental Status Significant Findings/Observations on Appearance and Mood:: Client is alert and oriented x 4. Client is casually groomed. Client is cooperative with assessment. Client makes good eye contact. Client's voice has normal rate and volume. Client has appropriate affect. Client denies delusions/hallucinations. Client denies SI. Suicide Assessment Suicidal Ideation Are you currently or have you been suicidal in the past?: No Suicidal Intentional Rating Scale (SIRS): No suicidal thoughts (past or present) Physician Notification Past Psychiatric History MH Treatment Hx Past Psychiatric Medications:: Abilify- significant weight gain and lethargy. Did not list other past medications. Age of first mental health symptoms: Client states she was diagnosed as bipolar in 2019. Describe (age, circumstance, etc) any past hospitalizations: 08/13/23- [facility], 08/29/23- [facility], 09/23/23- [facility]. Client vague about first 2 hospitalizations of 2022, but states her admission 09/23 was for dipika. Current providers for mental health treatment (counselor, psychiatrist, protective services case worker, etc.): [facility] and counseling Fall Risk Assessment Age Age: Less than 60 Mental Status Mental Status: Willing & able to ask for assistance when needed Physical Status Physical Status: No problems Impairments Impairments: None Elimination Elimination: Continent AND independent Gait or Balance Gait or Balance: Walks independently Hx of Falls History of falls in the past 6 months: No known history Medications/Substances Psychotropics:: Antipsychotics Others:: Antihypertensives and Diuretics Medications/substances used within the past 24 hours or ordered to administer: 3 or more of the medications/substances listed above Total Score Total Points:: 2 RN Summary of Impressions Impressions Recommendations Impressions: Psychiatric Issues: 1. Bipolar 1 disorder, most recent episode manic severe without psychotic features (F31.13 2. PTSD 3. Anxiety disorder, NOS 4. Strong cluster B traits 5. Alcohol use disorder Level of Care How do the client's current symptoms and functional deficits support need for this level of care?: Client was referred to IOP after several recent hospitalizations for mental health. Client was last hospitalized at the end of August 2023 and client states that was for dipika. Client does admit to drinking 2-4 beers per day, and states she used to drink more heavily. Client is vague when asked about symptoms from manic episodes, but client states I think I'm still manic now . IOP will promote gains and prevent further decompensation while providing social support and skills training.
[2023-10-12 12:21] VITALS: BP 135/84; PULSE 97
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
--- NOTE | 2023-10-12 13:10 | BH.DR.ITP ---
Initial Treatment Plan Patient Information Visit Information: ADMISSION DATE: EXPECTED LOS: 4-6 weeks Problems/Symptoms Problem #1:: Mood instability Symptom:: Recent dipika, grandiosity, reckless behavior, impulsivity, rapid speech, acting out, biological disruption of sleep Problem #2:: Anxiety Symptom:: Worry, rumination, panic attacks, nightmares, flashbacks, avoidance
--- NOTE | 2023-10-13 10:15 | BH.SGPN.GN ---
Behaviors/Verbalizations/Mental Status: []Client alert and oriented, casually dressed and groomed. Eye contact good. Motor activity appropriate. Speech within normal limits. Affect congruent, mood depressed and agitated. Thoughts linear, logical, no signs of hallucinations or delusions. Client Response/Progress/Benefit: []Pt engaged in session AEB listening attentively to others and providing insight to group discussion. Pt engaged in activity, able to connect how it can be uncomfortable and difficult to accept when things are out of one?s own control. Pt worked with group to identify what things in life can be hard to accept. Group identified things hard to accept as: , body image, loss of relationship, mental health diagnosis, other?s behaviors, and past decisions. Pt worked on identifying what personal things are hard to accept for themself, sharing being terminated from her job, other's behaviors, and daily responsibilities are some things pt struggles with accepting. Pt seemed to benefit from increased awareness of importance of acceptance. Pt to continue IOP to improve mood stability, increase application of distress tolerance skills, and prevent decompensation. Narrative Note: []
--- NOTE | 2023-10-14 13:45 | BH.COMM_ITS ---
Communication Note Communication with Client Communication Note: Pt scheduled for IOP group on this date however did not show or call to cancel. A message was left on pt voicemail encouraging pt to follow- up.
--- NOTE | 2023-10-17 13:46 | BH.COMM ---
Communication Note Communication with Client Communication Note: Pt scheduled for IOP group on this date however did not show or call to cancel. A message was not able to be left on pt voicemail due to voice mailbox being full. Will attempt additional follow-up.
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
== END 2023-10-18 10:32 | disposition home or self-care (01) ==
LOC: BHIOP 08:00
PROVIDERS: PCP Internal Medicine; Referring Provider Psychiatry & Neurology Psychiatry; Visit Provider Psychiatry & Neurology Psychiatry
DX: F31.13 Bipolar disorder, current episode manic without psychotic features, severe (principal); F41.9 Anxiety disorder, unspecified; F43.10 Post-traumatic stress disorder, unspecified; F10.90 Alcohol use, unspecified, uncomplicated
CPT/HCPCS: 90792; H2012; S9480; T1002; 90832